=== PATIENT | female | born 1940 | race Two or more races ===

== ENCOUNTER 2021-02-05 07:28 | Outpatient (CLI) | payer OTHER | END 2021-02-05 07:29 | disposition home or self-care (01) | LOC: NUCLEAR 07:28 | PROVIDERS: ATTEND Internal Medicine Cardiovascular Disease | DX: I25.10 Atherosclerotic heart disease of native coronary artery without angina pectoris (principal) | CPT/HCPCS: 78452; 93017; A9500; J0153 ==